=== PATIENT | female | born 1975 | race Caucasian/White ===

== ENCOUNTER 2018-09-26 19:09 | Emergency (ER) | END 2018-09-26 21:21 | disposition home or self-care (01) ==

== ENCOUNTER 2018-10-04 19:07 | Emergency (ER) | END 2018-10-04 21:49 | disposition home or self-care (01) ==

== ENCOUNTER 2019-02-05 19:27 | Emergency (ER) | payer SELFPAY ==
[~2019-02-05] VITALS: Ht 154.9 cm; Wt 102.2 kg
[~2019-02-05 19:27] MED LIST: CARI350T PO; NAPR-985 PO
[2019-02-05 19:46] VITALS: BP 127/84; PULSE 74; RESP 20; Ht 154.9 cm; Wt 102.2 kg
== END 2019-02-05 21:53 | disposition left against medical advice (07) ==
LOC: FTE 19:27
DX: Z53.21 Procedure and treatment not carried out due to patient leaving prior to being seen by health care provider (principal)

== ENCOUNTER 2019-03-28 16:25 | Emergency (ER) | payer OTHER ==
[~2019-03-28] VITALS: Wt 103.6 kg
[2019-03-28 16:57] VITALS: BP 135/87; PULSE 81; RESP 22
[2019-03-28] MEDS ORDERED: IBUP-1542 PO (17:20)
--- NOTE | 2019-03-28 17:23 | ERD ---
ER Documentation Chief Complaint Chief Complaint R shoulder to forearm pain x3d onset moving dryer. limited mvmt, +circ/sens HPI 44-year-old [id number] female presents emergency room complaining of right forearm and shoulder pain. Patient states she moved to [facility] 3 days ago. Since then she is been having right arm pain. She reports no numbness, tingling, loss of function. Her pain is mild to moderate and localized to the right arm. ROS All systems reviewed and are negative except as per history of present illness. Medications Home Meds Active Scripts Ibuprofen* (Ibuprofen*) 600 Mg Tablet, 600 MG PO Q6H PRN for PAIN for 28 Days, TAB Prov:STEPHENHERRERA 03/28/19 Carisoprodol* (Soma*) 350 Mg Tablet, 350 MG PO TID PRN for MUSCLE SPASMS, #15 TAB Prov:CHRISTOPHER MCKENNA F 10/04/18 Naproxen* (Naprosyn*) 500 Mg Tablet, 500 MG PO BID PRN for PAIN AND/OR INFLAMMATION, #30 TAB Prov:TONYAKELLIE 09/26/18 Allergies Allergies: Coded Allergies: sulfamethoxazole (Verified Allergy, Severe, PER PATIENT BREAKS OUT AND THROAT CLOSES UP, 09/21/07) trimethoprim (Verified Allergy, Severe, PER PATIENT BREAKS OUT AND THROAT CLOSES UP, 09/21/07) amoxicillin (Verified Allergy, Unknown, 09/26/18) codeine (Verified Allergy, Unknown, 09/26/18) famotidine (Verified Allergy, Unknown, 09/26/18) hydrocodone (Verified Allergy, Unknown, 09/26/18) omeprazole (Verified Allergy, Unknown, 09/26/18) PMhx/Soc Hx Alcohol Use: No Hx Substance Use: No Hx Tobacco Use: No Physical Exam Vitals Vital Signs Date Temp Pulse Resp B/P (MAP) Pulse Ox O2 O2 Flow FiO2 Time Delivery Rate 03/28/19 98.4 81 22 135/87 98 16:57 (103) Physical Exam General: Well-developed well-nourished in no distress Extremity: The right upper extremity, the area of concern was examined in detail. There is no neck or clavicle pain. The shoulder has no obvious deformity and is nontender. There is muscular tenderness to the bicep area. There is no deformity or obvious tenderness or area of trauma related to the humerus. Elbow is normal with good range of motion to flexion, extension, supination pronation. The forearm is normal with soft compartments. The wrist and hand and fingers are all normal in appearance. Patient is neurovascularly intact. Normal tendon function is noted proximal and distal to the injury. No evidence of infection is noted. Compartments are soft and compressible. Skin is intact. Procedures/MDM Patient was taken to a room, seen and examined Procedure: Immobilization Under my supervision patient was placed in a shoulder sling. She was noted be comfortable neurovascular intact after immobilization. Medical decision makin-year-old presents with what appears to be a musculoskeletal type strain. I have no concerns regarding fracture but given the patient's clinical presentation. Patient is functioning normal with her pain well controlled and seems to be appropriate for outpatient care. Departure Diagnosis: Primary Impression: Shoulder pain Condition: Stable Patient Instructions: Shoulder Pain (Uncertain Cause) Referrals: FRANDY LUJAN MD (PCP) Additional Instructions: See your doctor if not improving in the next 3-5 days. Return here for any worsening concerns HERRERA MITCHELL March 28, 2019 17:23
== END 2019-03-28 17:51 | disposition home or self-care (01) ==
LOC: FTE 16:25
DX: M25.511 Pain in right shoulder (principal)
CPT/HCPCS: 99282